=== PATIENT | female | born 2005 | race Two or more races ===

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

== ENCOUNTER 2023-10-23 00:16 | Emergency (ER) | payer MEDICAID ==
[~2023-10-23] VITALS: Ht 157.5 cm; Wt 74.9 kg
[2023-10-23 00:50] VITALS: BP 117/62; PULSE 86; RESP 16; TEMP 98.4
[2023-10-23] MEDS ORDERED: ACET500T58 PO (03:19)
[2023-10-23 04:19] VITALS: O2SAT 98
== END 2023-10-23 07:00 | disposition home or self-care (01) ==
LOC: ER 00:16
DX: M54.2 Cervicalgia (principal); M54.50 Low back pain, unspecified; Z79.899 Other long term (current) drug therapy; V43.62XA Car passenger injured in collision with other type car in traffic accident, initial encounter; Y93.89 Activity, other specified; Y92.410 Unspecified street and highway as the place of occurrence of the external cause; Y99.8 Other external cause status
CPT/HCPCS: 99282; J7030; J7050